=== PATIENT | female | born 1955 | race Caucasian/White ===

== ENCOUNTER → 2019-05-10 | Outpatient (REF) | payer MEDICARE | LOC: M LAB LCGH 15:12 | PROVIDERS: ATTEND Physician Assistant | DX: C44.519 Basal cell carcinoma of skin of other part of trunk (principal) ==

== ENCOUNTER → 2020-08-04 | Outpatient (REF) | payer MEDICARE | LOC: M LAB REF 15:58 | PROVIDERS: ATTEND Physician Assistant | DX: L57.0 Actinic keratosis (principal) ==

== ENCOUNTER → 2020-09-28 | Outpatient (CLI) | payer MEDICARE ==
--- NOTE | 2020-09-28 16:34 | DEXAMM ---
INDICATION: M81.0 OSTEOPOROSIS. COMPARISON: None. TECHNIQUE: Bone density was measured using dual-energy x-ray absorptionmetry (DEXA). FINDINGS: AP SPINE L1-L4 BMD 0.905 g/cm2 Young Adult T-Score -2.3 Age Matched Z-Score -0.7. LT FEMUR, TOTAL BMD 0.713 g/cm2 Young Adult T-Score -2.3 Age Matched Z-Score -1.0. LT NECK BMD 0.720 g/cm2 Young Adult T-Score -2.3 Age Matched Z-Score -0.7. RT FEMUR, TOTAL BMD 0.748 g/cm2 Young Adult T-Score -2.1 Age Matched Z-Score -0.7. RT NECK BMD 0.747 g/cm2 Young Adult T-Score -2.1 Age Matched Z-Score -0.5. IMPRESSION: There is low bone density of the spine. There is low bone density of the left hip. There is low bone density of the right hip. FOLLOW-UP: Recommendation for the next bone density exam: 2 years. <Electronically signed by Elier Cruz > 09/28/20 [id number]
== END ==
LOC: M WHC 13:37
PROVIDERS: ATTEND Obstetrics & Gynecology
DX: M81.0 Age-related osteoporosis without current pathological fracture (principal)

== ENCOUNTER → 2020-09-28 | Outpatient (REF) | payer MEDICARE | LOC: M SFHCWAGY 17:04 | PROVIDERS: ATTEND Nurse Practitioner Women's Health | DX: Z12.4 Encounter for screening for malignant neoplasm of cervix (principal); R87.618 Other abnormal cytological findings on specimens from cervix uteri | CPT/HCPCS: 87624; G0123 ==

== ENCOUNTER → 2022-12-09 | Outpatient (REF) | payer MEDICARE | LOC: M SFHCWAGY 10:04 | PROVIDERS: ATTEND Nurse Practitioner Family | DX: Z12.4 Encounter for screening for malignant neoplasm of cervix (principal) | CPT/HCPCS: 87624; G0123 ==

== ENCOUNTER → 2023-04-23 | Outpatient (REF) | payer MEDICARE | LOC: M SFHCDERM 14:21 | PROVIDERS: ATTEND Physician Assistant | DX: L57.8 Other skin changes due to chronic exposure to nonionizing radiation (principal); L85.8 Other specified epidermal thickening ==

== ENCOUNTER → 2023-12-17 | Outpatient (CLI) | payer MEDICARE | LOC: M WHC 12:53 | PROVIDERS: ATTEND Obstetrics & Gynecology | DX: Z12.31 Encounter for screening mammogram for malignant neoplasm of breast (principal) ==